=== PATIENT | female | born 1980 | race Caucasian/White ===

== ENCOUNTER 2025-07-13 08:04 | Outpatient (CLI) | payer OTHER, SELFPAY ==
[2025-07-14 22:38] LABS: HPV Source Cervical
[2025-07-20 09:42] LABS: Pap Test Digital Imaging Done
== END 2025-07-13 08:05 | disposition home or self-care (01) ==
PROVIDERS: Visit Provider Physician Assistant Medical
DX: Z00.00 Encounter for general adult medical examination without abnormal findings (principal); I10 Essential (primary) hypertension
CPT/HCPCS: 80053; 80061; 82306; 82607; 84443; 87624; 87625; 88141; 88142; 88175